=== PATIENT | male | born 1995 | race Caucasian/White ===

== ENCOUNTER 2023-03-27 16:06 | Outpatient (REF) | payer MEDICAID, SELFPAY ==
[2023-03-28 02:14] LABS: Alanine Aminotransferase 15 U/L (0-40); Albumin Level 4.5 g/dL (3.5-5.0); Alkaline Phosphatase 51 U/L (39-117); Anion Gap 9 (12-20); Aspartate Amino Transferase 20 U/L (5-37); Bilirubin Total 0.6 mg/dL (0.0-1.0); Blood Urea Nitrogen 13 mg/dL (9-16); Carbon Dioxide 26 mmol/L (22-29); Chloride 107 mmol/L (96-108); Cholesterol 175 mg/dL; Estimated Glomerular Filt Rate > 60; Glucose Random 94 mg/dL (60-115); HDL Cholesterol 29 mg/dL; LDL Cholesterol Calculated 81 mg/dl; Potassium 3.8 mmol/L (3.3-5.1); Sodium 138 mmol/L (135-145); Thyroid Stimulating Hormone 0.92 uIU/mL (0.32-4.0); Total Protein 7.4 g/dL (6.5-8.0); Triglycerides 328 mg/dL
[2023-03-28 05:08] LABS: ~HepC Num1 0.13 S/CO (0.00-0.79); ~Hepatitis C Antibody Nonreactive (Nonreactive)
[2023-03-28 05:44] LABS: Estimated Average Glucose 108 mg/dL; Hemoglobin A1c % 5.4 %
[2023-03-28 12:09] LABS: CT PCR NOT DETECTED (Not Detect.); NG PCR NOT DETECTED (Not Detect.)
[2023-03-29 08:17] LABS: Syphilis Screen Nonreactive (Nonreactive)
[2023-04-02 17:48] LABS: HIV RNA PCR Qn Copies Not Detected Copies/mL; HIV RNA PCR Qn Log Copies Not Detected Log cps/mL
== END 2023-03-27 16:07 | disposition home or self-care (01) ==
LOC: HO.HHCL 16:06
PROVIDERS: Visit Provider Nurse Practitioner Family
DX: Z00.00 Encounter for general adult medical examination without abnormal findings (principal); Z11.3 Encounter for screening for infections with a predominantly sexual mode of transmission; Z11.4 Encounter for screening for human immunodeficiency virus [HIV]; R73.03 Prediabetes
CPT/HCPCS: 0353U; 80053; 80061; 83036; 84443; 86780; 86803; 87536; 87900

== ENCOUNTER 2025-07-31 10:14 | Emergency (ER) | payer MEDICAID, SELFPAY ==
--- NOTE | ~2025-07-31 | XR_ITS ---
CLINICAL HISTORY: Twisted ankle with bilateral malleolus tenderness --- Additional Notes or Special Instructions: R O fracture 3 view left ankle Comparison: None provided Findings: No acute fractures or dislocations. No significant loss of joint space, osteophytes, or erosions. No ankle effusion. No radiopaque foreign body. IMPRESSION: 1. No acute findings. This document has been electronically signed by: Rhys Regalado MD on 07/31/2025 11:25:29
--- NOTE | ~2025-07-31 | XR_ITS ---
CLINICAL HISTORY: Fall, right hand tenderness 3 view right hand Comparison: None provided Findings: No fractures or dislocations. No significant loss of joint space or osteophytes. No erosions. No radiopaque foreign body. IMPRESSION: 1. No acute findings This document has been electronically signed by: Rhys Regalado MD on 07/31/2025 11:25:55
--- NOTE | ~2025-07-31 | XR_ITS ---
CLINICAL HISTORY: Fall, right wrist tenderness --- Additional Notes or Special Instructions: R O fracture 4 view right wrist Comparison: None provided Findings: No fractures or dislocations. No significant arthritic change or erosions. No radiopaque foreign body. IMPRESSION: 1. No acute findings This document has been electronically signed by: Rhys Regalado MD on 07/31/2025 11:25:06
--- NOTE | ~2025-07-31 | XR_ITS ---
CLINICAL HISTORY: Twisted foot, medial tenderness --- Additional Notes or Special Instructions: R O fracture 3 view left foot Comparison: None provided Findings: No fractures or dislocations. No significant arthritic change or erosions. No ankle effusion. No radiopaque foreign body. IMPRESSION: 1. No acute findings. This document has been electronically signed by: Rhys Regalado MD on 07/31/2025 11:23:10
--- OUTSIDE RECORDS SUMMARY | 2025-07-31 09:40 | XMS_ITS | Encounter Summary ---
Author Organization [employer] Address [address] [facility] 7 [place] [address] Care Team Providers Care Elevator Constructor Electric Name Role Phone Annamaria Genie PACK Primary Care Provider Ismael Eduardo RN Unavailable [phone] Merline Rodriguez Unavailable Encounter Details Date Type Department Care Team (Late st Contact Info) Description 07/31/2025 9:40 AM EST Office Visit [facility] [address] [place], [place] [id number] Lebron Mandel MD [address] [place] [address] Acute pain of right wrist (Primary Dx); Acute left ankle pain Social History Tobacco Use Types Packs/Day Years Used Date Smoking Tobacco: Former Cigarettes 0.5 5 0 02/07/2016 - 02/06/2021 Passive Smoke Exposure: Past Smokeless Tobacco: Never Comments:Quit smoking 2020 Alcohol Use Standard Drinks/Week Comments Yes 0 (1 standard drink = 0.6 oz pure alcohol) occasional - social functions dark liquor - Depression Answer Date Recorded Patient Health Questionnaire-9 Score 17 07/20/2025 Patient Health Questionnaire-9 Score 17 07/20/2025 Last PHQ-9: Questionnaire Data Not on file 1 09/19/2024 Housing Stability Answer Date Recorded What is your housing situation today? I do not have housing (Staying with others, in a hotel, in a fci, living outside on the street, on a beach, in a car, or in a park 07/21/[address] you li ve. Do you have problems with any of the following? None of the above 07/21/2025 Food Insecurity Answer Date Recorded Within the past 12 months, y ou worried that your food would run out before you got money to buy more: Sometimes True 2024 Within the past 12 months,th e food you bought just didn't last and you didn't have enough money to get more: Sometimes True 07/21/2025 Transportation Answer Date Recorded In the past 12 months, has l ack of transportation kept you from medical appts, meetings, work or from getting things needed for daily living? No 07/21/2025 Utilities Answer Date Recorded In the past 12 months, has t he electric, gas, oil or water company threatened to shut off services in your home? No 07/21/2024 Depression Answer Date Recorded Patient Health Questionnaire-2 Score 2 07/20/2025 Internet Access Answer Date Recorded Internet Access Q1 Yes 07/21/2024 Internet Access Q2 Not on file 07/21/2024 Sex and Gender Information Value Date Recorded Sex Assigned at Male 07/09/2022 10:15 AM EDT Legal Sex Male 10:15 AM EDT Gender Identity Male 02/06/2023 6:18 PM EDT Sexual Orientation Straight 02/06/2023 6: 18 PM EDT documented as of this encounter Last Filed Vital Signs Vital Sign Reading Time Taken Comments Blood Pressure 151/86 07/31/2025 9:42 AM EST Pulse 78 07/31/2025 9:42 AM EST Temperature 36.8 C (98.2 F) 07/31/2025 9:42 AM EST Respiratory Rate 19 07/31/2025 9:42 AM EST Oxygen Saturation 97% 07/31/2025 9:42 AM EST Inhaled Oxygen Concentration - - Weight 109 kg (240 lb) 07/31/2025 9:42 AM EST Height 160 cm (5' 3 ) 07/31/2025 9:42 AM EST Body Mass Index 42.51 07/31/2025 9:42 AM EST documented in this encounter Progress Notes * Lebron Mandel MD - 07/31/2025 9:40 AM EST Subjective History was provided by the patient. Dameon Rosenbaum is a 30 y.o. male who presents to Saturday [facility] for evaluation of right wrist and left ankle pain after a mechanical fall yesterday. Tripped over a doorframe saddle while carrying histoddler child. He landed on an outstretched right hand and inverted left foot. The child was not injured. Able to ambulate, but with pain in the area anterior to his left medial malleolus. Has underlying CTS (scheduled to see Orthopedics in 09/2025). 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 Pain is mostly in the right thumb thenar eminence area, along with the index and middle finger metacarpal areas. Increased tenderness with flexion of these digits. Has swelling and limited ROM with flexion/exte nsion of the wrist. Also with twitching of his fingers since the injury. Took Acetaminophen withoutmuch improvement. Objective Vitals: 07/31/25 0942 BP: (!) 151/86 BP Location: Left arm Patient Position: Sitting BP Cuff Size: Large adult Pulse: 78 Resp: 19 Temp: 98.2 ??F (36.8 ??C) TempSrc: Oral SpO2: 97% Weight: 240 lb (109 kg) Height: 5' 3 (1.6 m) Physical Exam Constitutional: General: He is not in acute distress. Appearance: Normal appearance. He is not ill-appearing, toxic-appearing or diaphoretic. HENT: Head: Normocephalic and atraumatic. Right Ear: External ear normal. Left Ear: External ear normal. Nose: Nose normal. Mouth/Throat: Pharynx: Oropharynx is clear. Eyes: Extraocular Movements: Extraocular movements intact. Conjunctiva/sclera: Conjunctivae normal. Pulmonary: Effort: Pulmonary effort is normal. Musculoskeletal: Cervical back: Neck supple. Comments: Right hand edema (including fingers); limited AROM with flexion/extension to about 45 degrees; visible twitching of index and middle fingers; limited flexion of thumb and index/middle fingers, with worsening tenderness; capillary refill is <2 sec, brisk Left ankle edema with tenderness in the area anterior to the medial malleolus (anterior deltoid); within normal plantar flexion and dorsiflexion ROM Skin: General: Skin is warm and dry. Neurological: General: No focal deficit present. Mental Status: He is alert and oriented to person, place, and time. Gait: Gait abnormal (antalgic gait). Psychiatric: Mood and Affect: Mood normal. Behavior: Behavior normal. Diagnoses and all orders for this visit: Acute pain of right wrist (Primary) Acute left ankle pain Patient presents to Saturday [facility] after a mechanical fall yesterday Landed on an outstretched right hand and inverted left foot Suspect left foot anterior deltoid ligament strain I am more concerned about his right hand due to significantly limited ROM and involuntary twitchings Recommended patient to be evaluated in an ER setting for X-ray and further management based on the imaging Future indications for UC/ER use reviewed Patient understands and agrees with the plan documented in this encounter Plan of Treatment Upcoming Encounters Date Type Department Care Team (Late st Contact Info) Description 08/10/2025 1:00 PM EST Nutrition [facility]TRITION [address] [place] [address] [place] [address] 09/13/2025 3:15 PM EST Office Visit [facility] [address] [place] [address] Genie Yin NP [address] [place] [address] documented as of this encounter Visit Diagnoses Diagnosis Acute pain of right wrist- Primary Acute left ankle pain documented in this encounter Additional Health Concerns Assessment Noted Time PHQ-9 Depression Total Score: 17 025 1:20 PM EST documented as of this encounter Care Teams Elevator Constructor Electric Relationship Specialty Start Date End Date Genie Yin NP [address] [place] [address] PCP - General Family Medicine 02/14/24 Ismael Eduardo RN [address] [place] [address] Registered Nurse Family Medicine 07/06/25 Merline Rodriguez 07/06/25 documented as of this encounter
[2025-07-31 10:23] VITALS: BP 155/88; PULSE 71; RESP 16; TEMP 36.4; O2SAT 98; BMI 42.5
--- NOTE | 2025-07-31 10:33 | ED_ITS ---
HPI - Extremity Problem General Chief complaint: Extremity Problem Stated complaint: Injury Time Seen by Provider: 07/31/25 10:17 Source: patient Mode of arrival: ambulatory Limitations: no limitations History of Present Illness ED Provider: Dr. Sebastián Razo HPI Narrative: 30-year-old male with a history of depression, anxiety, bipolar disorder, schizophrenia, ADHD, right hand and wrist carpal tunnel syndrome/tendonitis who presents emergency department for evaluation of trip and fall yesterday. Patient states that he fell on an outstretched right arm injuring his right hand and right wrist. He states he also twisted his left ankle. He is currently complaining of right hand, right wrist pain and left bilateral ankle pain and left foot pain. Patient did not take any medications for his pain. He states in his pain is 8/10 at this time. The patient states he is able to walk but he is having pain with walking. Also states he is able to move his hand and wrist but this makes the pain worse. Related Data Previous Rx's ?Medication ?Instructions ?Recorded acetaminophen 500 mg tablet 1,000 mg (2 x 500 mg) PO Q 6H PRN 07/31/25 (Tylenol Extra Strength) pain #20 tabs ibuprofen 400 mg tablet 400 mg PO TID PRN fever or p ain 07/31/25 #30 tabs Allergies Allergy/AdvReac Type Severity Reaction Status Date / Time amoxicillin (AMOXICILLIN) Allergy Unknown RASH Verified 07/31/25 10:24 [facility] Past Medical History [facility] Narrative: Social history: The patient states he is currently living in a homeless jail. 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 Social History Social History Advance Directives: No Advance Directives Information Provided: No Physical Exam Vital Signs: Vital Signs: Last Vital Signs Temp 97.6 F 07/31/25 10:23 Pulse 71 07/31/25 10:23 Resp 16 07/31/25 10:23 BP 155/88 H 07/31/25 10:23 Pulse Ox 98 07/31/25 10:23 O2 Del Method Room Air 07/31/25 10:23 BMI result Body Mass Index 42.5 Vital signs revealed an elevated blood pressure of 155/88 Exam: General: Awake, alert in no distress Extremities: Right: Patient has tenderness palpation of the bilateral malleolar areas with no significant ecchymosis or soft tissue swelling, also there is tenderness palpation over the medial aspect of the left foot. Patient is able to walk but expresses pain with walking. Left: The patient has tenderness palpation over his left wrist and left hand with no significant point tenderness, no significant ecchymosis or soft tissue swelling noted Neuro: Awake, alert, oriented, normal speech Psych: Pleasant, cooperative Medications Administered Discontinued Medications Generic Name Dose Route Start Last Admin Trade Name Maryann PRN Reason Stop Dose Admin Ibuprofen 400 mg 07/31/25 10:33 07/31/25 10:38 Ibuprofen 400 Mg Tablet PO 07/31/25 10:34 400 mg ONCE STA Administration Medical Decision Making Medical Decision Making MDM Narrative: 30-year-old male with a history of depression, anxiety, bipolar disorder, schizophrenia, ADHD, right hand and wrist carpal tunnel syndrome/tendonitis who presents emergency department for evaluation of trip and fall yesterday with injury to the left foot and ankle and right wrist and hand. Vital signs revealed an elevated blood pressure of 155/88. Patient does have tenderness palpation over his medial and lateral malleolus and medial aspect of his left foot. He also has tenderness with palpation of his right hand and right wrist. Differential diagnosis: ?Includes but is not limited to left ankle sprain/fracture, left foot sprain/fracture, right hand contusion/fracture, right wrist contusion/fractures Course: 10:41 I ordered x-rays of the patient's left foot ankle, right hand and wrist. Patient was given ibuprofen 400 mg orally for his pain. 12:22 Patient's x-rays revealed no acute fractures and I did discuss this with the patient. This time I do not think that the patient needs an ankle brace/walking boot given the minimal findings and the fact that he seems to be able to walk without much difficulty. Patient does have a wrist splint for his carpal tunnel syndrome and I told him to wear the right wrist splint for the next week. Patient was given prescriptions for ibuprofen 400 mg q.6 hours as needed for pain and Tylenol 500 mg pills, 2 pills every 6 hours as needed for pain. Patient was given a work note to return to work on 08/04/2025. Differential Diagnosis Differential Diagnoses: The differential diagnosis associated with the presentation includes (See above) Admission/Observation Consideration of admission/observation: Escalation of care including admission/observation considered (No) Independent Interpretation I performed an independent interpretation of an: Plain X-Ray Interpretation: My interpretation of the patient's left ankle and foot x-rays are as follows: No acute fractures seen by me. My interpretation of the patient's right wrist and hand x-ray is as follows: No acute fracture seen by me. Radiology Impression Discussion of test interpretation with radiology: I have reviewed the radiologist's reading. Radiologist Impression: 4 view right wrist Comparison: None provided Findings: No fractures or dislocations. No significant arthritic change or erosions. No radiopaque foreign body. IMPRESSION: 1. No acute findings This document has been electronically signed by: Rhys Regalado MD on 07/31/2025 11:25:06 3 view right hand Comparison: None provided Findings: No fractures or dislocations. No significant loss of joint space or osteophytes. No erosions. No radiopaque foreign body. IMPRESSION: 1. No acute findings This document has been electronically signed by: Rhys Regalado MD on 07/31/2025 11:25:55 3 view right hand Comparison: None provided Findings: No fractures or dislocations. No significant loss of joint space or osteophytes. No erosions. No radiopaque foreign body. IMPRESSION: 1. No acute findings This document has been electronically signed by: Rhys Regalado MD on 07/31/2025 11:25:55 3 view left foot Comparison: None provided Findings: No fractures or dislocations. No significant arthritic change or erosions. No ankle effusion. No radiopaque foreign body. IMPRESSION: 1. No acute findings. This document has been electronically signed by: Rhys Regalado MD on 07/31/2025 11:23:10 Discharge Plan Discharge Clinical Impression: Fall from slip, trip, or stumble Qualifiers: Encounter type: initial encounter Qualified Code(s): W01.0XXA - Fall on same level from slipping, tripping and stumbling without subsequent striking against object, initial encounter Left ankle sprain Qualifiers: Encounter type: initial encounter Sprain of left foot Qualifiers: Encounter type: initial encounter Qualified Code(s): S93.602A - Unspecified sprain of left foot, initial encounter Contusion of hand, right Qualifiers: Encounter type: initial encounter Qualified Code(s): S60.221A - Contusion of right hand, initial encounter Right wrist sprain Qualifiers: Encounter type: initial encounter Patient Disposition: Home, Self-Care Additional Instructions: The x-rays of your hand, wrist, ankle and foot did not reveal any broken bones which is reassuring. Your injuries are consistent with joint sprains and contusions. I do not think that you need an ankle brace at this time but I do want you to wear your right wrist brace for 1 week to help with your wrist sprain. Take ibuprofen 400 mg pills, 1 pills every 6 hours as needed for pain or fever. Take Tylenol (acetaminophen) 500 mg pills, 2 pills every 6 hours as needed for pain or fever. Continue taking your other medications as prescribed by your providers. Follow-up with your doctor in 2 days. Please return to the emergency department if your symptoms get worse or if you develop any symptoms that are concerning to you. Please see the return to work note. Prescriptions: New acetaminophen [Tylenol Extra Strength] 500 mg tablet 1,000 mg PO Q6H PRN (Reason: pain) Qty: 20 0RF ibuprofen 400 mg tablet 400 mg PO TID PRN (Reason: fever or pain) Qty: 30 0RF Stand Alone Forms: Work/School Release Print Language: Beninese
--- OUTSIDE RECORDS SUMMARY | 2025-07-31 10:40 | XMS_ITS ---
Author Organization [employer] Address [address] [place] [address] 7 [place] [address] Care Team Providers Care Restorative Rehab Aide Name Role Phone Genie Yin NP Primary Care Provider Ismael Eduardo RN Unavailable [phone] Merline Rodriguez Unavailable CM Complex Status:Enrolled (Active) Start date:07/06/2025 Enrollment date:07/20/2025 Enrollment reason:Referred by provider Overview Provider Referral- pt needs assistnace comleitng paperwork for SSI, disability realted to hand and mental health Case Team Name Relationship Phone Ismael Eduardo RN(Responsible Staff) Registered Nurse [phone] Continued Care and Services Coordination
--- OUTSIDE RECORDS SUMMARY | 2025-07-31 10:40 | XMS_ITS ---
Author Organization [employer] Address [address] [place] [address] [address] [place] [address] Care Team Providers Care Bone Char Kiln Tender Name Role Phone Genie Yin NP Primary Care Provider [phone] Ismael Eduardo RN Unavailable Merline Rodriguez Unavailable CHW Complex Status:Enrolled (Active) Start date:07/06/2025 Enrollment date:07/21/2025 Enrollment reason:Referred by provider Overview Provider Referral- pt needs assistnace comleitng paperwork for SSI, disability realted to hand and mental health Please outreach for enrollment. Case Team Name Relationship Phone Merline Rodriguez(Responsible Staff) [phone] Continued Care and Services Coordination
--- OUTSIDE RECORDS SUMMARY | 2025-07-31 10:40 | XMS_ITS | Encounter Summary ---
Author Organization [employer] Address [address] [facility] 7 [place] [address] Care Team Providers Care Freezer Laboratory Technician Name Role Phone Genie Yin NP Primary Care Provider [phone] Ismael Eduardo RN Unavailable [phone] Merline Rodriguez Unavailable Reason for Visit * Reason Comments Care Coordination SDOH Encounter Details Date Type Department Care Team (Latest Contact Info) Description 07/28/2025 Patient Outreach [facility] [address] [place], [place] [phone] Genie Yin NP [address] [place] [address] Care Coordination (SDOH) Social History Tobacco Use Types Packs/Day Years [...] with others, in a hotel, in a alf, living outside on the street, on a [...] PM EDT documented as of this encounter Progress Notes * Merline Rodriguez - 07/28/2025 10:00 AM EST CHW Merline Rodriguez met with the patient in the office today to follow up on SDOH needs. The patient???s name, date of , and address were confirmed. Patient reports doing well. CHW assisted the patient with scheduling an appointment to apply for SSI. The appointment is scheduled for 08/02/25 at 9:00 AM via phone. Patient agreed to the appointment and confirmed attendance. Required paperwork for the appointment was provided. Patient reported having an appointment with their partner on 07/29/25 to view an apartment. The patient is currently living in a alf and is seeking a 3- bedroom unit. CHW provided an additional housing application for another housing complex in the event the patient is not eligible for the apartment they plan to view. CHW also informed the patient that, if they secure the apartment, assistancecan be provided in locating a program to help with the down payment. CHW informed the patient that a follow-up will be completed within 10 days. Patient was agreeable and expressed gratitude for the support. No further questions or concerns were noted. CHW reinforced direct contact information: or for any additional needs. CHW also reviewed extended clinic hours on Mondays and Wednesdays, and availability of [facility] located in the [facility]. The after-hours [facility] line, , was provided; thisline offers nighttime triage services and the option to reach an on-call provider if needed. Patient verbalized understanding and successfully repeated the information. A follow-up call will be placed within 10 days. Patient agrees with the plan. documented in this encounter Plan of Treatment Upcoming Encounters Date Type Department Care Team (Late st Contact Info) Description 08/10/2025 1:00 PM EST Nutrition [facility] DIABETES/NUTRITION [address] [place] [address] Asha Israel, JAVIER [address] [place] [address] 09/13/2025 3:15 PM EST Office Visit [facility] [address] [place] [address] Genie Yin NP [address] [place] [address] documented as of this encounter Visit Diagnoses Not on filedocumented in this encounter Additional Health Concerns Assessment Noted Time PHQ-9 Depression Total Score: 17 025 1:20 PM EST documented as of this encounter Care Teams Freezer Laboratory Technician Relationship Specialty Start Date End Date Genie Yin NP [address] [place] [address] PCP - General Family Medicine 02/14/24 Ismael Eduardo RN [address] [place] [id number] Registered Nurse Family Medicine 07/06/25 Merline Rodriguez 07/06/25 documented as of this encounter
--- OUTSIDE RECORDS SUMMARY | 2025-07-31 10:40 | XMS_ITS | Clinical Summary ---
Author Organization [employer] Address [address] [place] [address] Care Team Providers Care Lace And Textiles Restorer Name Role Phone Annamaria Genie SIRENA Primary Care Provider [phone] Ismael Eduardo RN Unavailable [phone] Merline Rodriguez Unavailable Allergies Active Allergy Reactions Criticality Noted Date Comments Amoxicillin Rash Low 02/06/2023 Medications * This document contains information received from the source organization and may not represent a complete record from that organization. loratadine-pseud oephedrine ER (Claritin-D 24 Hour) 10-240 MG 24 hr tablet Take 1 tablet by mouth in the morning. Do not crush, chew, or split. 60 tablet 2 023 Active fluticasone (Flonase) 50 MCG/ACT nasal spray SPRAY 1-2 SPRAYS INTO EACH NOSTRIL IF NEEDED AT BEDTIME FOR RHINITIS. SHAKE GENTLY. BEFORE FIRST USE, PRIME PUMP. AFTER USE CLEAN TIP AND REPLACE CAP. 48 mL 024 Active guanFACINE (Tenex) 1 MG tablet TAKE 1 TABLET BY MOUTH AT BEDTIME 30 tablet 024 Active Additional Information Patient not taking.Reported on 07/20/2025 atomoxetine (Strattera) 40 MG capsuleIndicatio ns:Attention deficit hyperactivity disorder (ADHD), combined type Take 1 capsule (40 mg) by mouth with breakfast. Swallow capsule whole; do not open. If opened accidentally, do not touch eyes; wash hands immediately (product is an eye irritant). 30 capsule 2 Active Methylphenidate HCl (methylphenidate ER) 18 MG 24 hr tabletIndication s:Attention deficit hyperactivity disorder (ADHD), combined type Take 1 tablet (18 mg) by mouth Once per day. Do not crush, chew, or split. 30 tablet Active Diclofenac Sodium 1 % gel Apply 2 g topically 4 times daily. 350 g 2 2024 Active naproxen (Naprosyn) 500 MG tablet Take 1 tablet (500 mg) by mouth 2 times daily. 60 tablet 2024 Active naproxen (Naprosyn) 500 MG tablet Take 1 tablet (500 mg) by mouth 2 times daily. 60 tablet 2024 Discontinued(R eorder (will not trigger notification to Pharmacy)) Active Problems Problem Noted Date Diagnosed Date Class 3 severe obesity with body mass index (BMI) of 40.0 to 44.9 in adult 07/05/2025 Assessment & Plan (07/05/2025 8:13 PM EDT): Paranoid schizophrenia ([facility]) 07/05/2025 Assessment & Plan (07/05/2025 8:13 PM EDT): Orders: Referral to Care Management; Future Pain of right hand 04/01/2025 Assessment & Plan (04/01/2025 2:19 PM EDT): Referral to ortho for ongoing management of wrist pain De Quervain's tenosynovitis, right 01/26/2025 Assessment & Plan (01/26/2025 5:54 PM EDT): Right hand/thumb pain, likely De Quervain's tenosynovitis. Has tenderness and swelling over hypothenar eminence on exam. Hx of carpel tunnel syndrome. -encouraged to follow-up with ortho. -referred to occupational therapy. -prescribed ibuprofen 800 MG -recommended and encouraged rest, given thumb spice brace. -given work note and instructed pt to call if symptoms prolong and work requires an updated note. Acute carpal tunnel syndrome of right wrist 01/08 Assessment & Plan (07/05/2025 8:13 PM EDT): Orders: Referral to Orthopaedic Surgery; Future Assessment & Plan (01/26/2025 5:54 PM EDT): Right hand/thumb pain, likely De Quervain's tenosynovitis. Has tenderness and swelling over hypothenar eminence on exam. Hx of carpel tunnel syndrome. -encouraged to follow-up with ortho. -referred to occupational therapy. -prescribed ibuprofen 800 MG -recommended and encouraged rest, given thumb spice brace. -given work note and instructed pt to call if symptoms prolong and work requires an updated note. Dietary counseling 10/03/2024 Assessment & Plan (10/03/2024 5:02 PM EST): Encouraged minimizing processed foods and increasing whole foods particularly vegetables Exercise counseling 10/03/2024 Assessment & Plan (10/03/2024 5:03 PM EST): Encouraged daily movement, working up to 30 minutes daily Non-recurrent acute serous otitis media of right ear 05/25/2024 Assessment & Plan (05/25/2024 6:09 PM EDT): Reviewed likely viral and self reolution, however with concurrent acute symptoms post URI and erythema, will treat, pt aware to complete abx as prescribed, update if no improvement Attention deficit disorder 05/25/2024 Assessment & Plan (05/25/2024 6:10 PM EDT): Established with counselor and plans to establish with psychiatrist, follow up in 3-4 months sooner prn Hand paresthesia 02/14/2024 Assessment & Plan (10/03/2024 5:01 PM EST): Suspect carpal tunnel, referral to ortho Swelling 02/14/2024 Assessment & Plan (02/20/2024 3:36 PM EDT): Reassuring exam today, encouraged minimizing salty and processed foods, labs as ordered below History of prediabetes 03/27/2023 Attention deficit hyperactiv ity disorder (ADHD), combined type 02/06/2023 Assessment & Plan (10/03/2024 5:02 PM EST): Improved with stimulant, continue Encounters Date Type Department Care Team Description 07/31/2025 9:40 AM EST Office Visit [facility] [address] [place] [phone] Lebron Mandel MD Acute pain of right wrist (Primary Dx); Acute left ankle pain 07/31/2025 Travel 07/28/2025 Patient Outreach [address] [address] Genie Yin NP Care Coordination (SDOH) 07/21/2025 Patient Outreach [address] [address] Genie Yin NP Care Coordination (SDOH) 07/20/2025 Plan of Care Documentation [address] [phone] 07/20/2025 Plan of Care Documentation [address] [address] 07/20/2025 Patient Outreach [address] [address] Genie Yin NP Care Management (C3CM- initial assessment/ enrollment.) 07/06/2025 Patient Outreach [address] [address] Genie Yin NP Care Coordination (CM/CHW call back) 07/06/2025 Patient Outreach [address] [address] Genie Yin NP Care Coordination (CM/CHW outreach) 07/06/2025 Patient Outreach [address] [address] Genie Yin NP Care Coordination (CHW Chart Review) 07/06/2025 Patient Outreach [address] [address] Genie Yin NP Care Management (C3CM- chart review) 07/06/2025 Patient Outreach [facility] [address] [place] [phone] Genie Yin NP 07/05/2025 3:15 PM EDT Office Visit [facility] [address] [place] [phone] Genie Yin NP Acute carpal tunnel syndrome of right wrist (Primary Dx); Class 3 severe obesity with body mass index (BMI) of 40.0 to 44.9 in adult, unspecified obesity type, unspecified whether serious comorbidity present (HCC); Paranoid schizophrenia (CMS/HCC) (HCC) 07/05/2025 Travel 2025 Telephone [facility] [address] [place] [phone] Angélica Lainez MA chart prep 06/14/2025 Telephone [facility] [address] [place] [phone] Genie Yin NP 06/08/2025 5:00 PM EDT Office Visit [facility] [address] [place] [address] [phone] Hailey Castillo FNP Acute pain of right knee (Primary Dx); Dietary counseling 06/08/2025 Travel from Last 3 Months Immunizations Immunization Administration Dates Next Due DTP 1996,1996 DTaP 02/23/2002,05/02/2000,07/24/1999 HPV, Quadrivalent 01/10/2015,03/25/2013 Hep A, ped/adol, 2 dose 03/25/2013,07/18/2010 Hep B, Adolescent or Pediatric 05/02/2000,1995 Hib (HbOC) 05/02/2000, 9,1996,08/27 IPV 08/19/2000, 9,1996,08/27 Influenza injectable quadriv alent preservative free 06/25/2017 Influenza, IIV3, injectable 07/18/2010, 9,07/09/2008 MMR 08/19/2000,05/02/2000 Meningococcal MCV4P ACYW-135 01/10/2015 Meningococcal MPSV4 06/08/2008 Pneumococcal Conjugate PCV 7 05/02/2000 Tdap 06/08/2008 Varicella 06/08/2008,11/07/1999 Family History Medical History Relation Name Comments ADD / ADHD Brother Autism Brother Diabetes type II Mother Hypertension Mother Autism Son Relation Name Status Comments Brother Mother Son Social History Tobacco Use Types Packs/Day Years Used Date Smoking Tobacco: Former Cigarettes 0.5 5 0 02/07/2016 - 02/06/2021 Passive Smoke Exposure: Past Smokeless Tobacco: Never Tobacco Cessation:Counseling Given: Not Answered Comments:Quit smoking 2020 Alcohol Use Standard Drinks/Week [...] with others, in a hotel, in a long-term, living outside on the street, on a [...] Orientation Straight 02/06/2023 6: 18 PM EDT Last Filed Vital Signs Vital Sign Reading [...] Mass Index 42.51 07/31/2025 9:42 AM EST Plan of Treatment Upcoming Encounters Date Type Department Care Team (Late st Contact Info) Description 08/10/2025 1:00 PM EST Nutrition [facility] [address] [place] [address] Asha Israel, JAVIER [address] [place] [address] 09/13/2025 3:15 PM EST Office Visit [facility] [address] [place] [address] Genie Yin, SIRENA [address] [place] [address] Health Maintenance Due Date Last Done Comments HIV Screening 1996 Hepatitis B Vaccines (3 of 3 - 3-dose series) 06/27/2000 05/02/2000, 1996 Family Planning (PISQ) 2011 HPV Vaccines (3 - Male 3-dose series) 04/04/2015 01/10/2015, 03/25/2013 DTaP/Tdap/Td Vaccines (7 - Td or Tdap) 06/08/2018 06/08/2008, 02/23/2002, 05/02/2000, Additional history exists COVID-19 Vaccine ( season) 2025 05/22/2021, 04/24/2021 Influenza Vaccine (#1) 2025 7, 07/18/2010, 06/09/2009, Additional history exists Alcohol/Substance Use Screening 08/14/2025 08/14/2024 Depression Monitoring 01/17/2026 07/20/2025, 025 Disability Screening 03/08/2026 03/08/2025 Tobacco Screening 07/05/2026 07/05/2025 SDOH Screening 07/21/2026 07/21/2025 Lipid Panel 03/27/2028 03/27/2023 Zoster Vaccines (1 of 2) 2046 RSV Patients and Patients Aged 60 years or older (1 - 1-dose 75+ series) 2071 HIB Vaccines Completed 05/02/2000, 07/10, 1996, Additional history exists Pneumococcal Vaccine: Pediatrics (0 to 5 Years) and At-Risk Patients (6 to 49) Years Aged Out 05/02/2000 No longer eligible based on patient's age to complete this topic IPV Vaccines Completed 08/19/2000, 07/10, 1996, Additional history exists Hepatitis A Vaccines Completed 03/25/2013, 07/18/20 10 Meningococcal Vaccine Completed 01/10/2015, 008 Hepatitis C Screening Completed 03/27/2023 Meningococcal B Vaccine Aged Out No l onger eligible based on patient's age to complete this topic RSV under 20 months Aged Out No longe r eligible based on patient's age to complete this topic Rotavirus Vaccines Aged Out No longer eligible based on patient's age to complete this topic Procedures Procedure Name Priority Date/Time Associated Diagnosis Comments HEPATITIS C ANTIBODY REFLEX Routine 03/27/2023 4:14 PM EDT LIPID PANEL, STANDARD Routine 03/27/2023 4:14 PM EDT Routine general medical examination at a health care facility from Last 3 Months or Most Recently Relevant to Health Maintenance Results * Hepatitis C Antibody Reflex (03/27/2023 4:14 PM EDT) Hepatitis C Antibody Nonreactive Nonreactive [facility] Comment:Antibodies to HCV no t detected; does not exclude early acuteHCV infection. 03/27/2023 4:14 PM EDT 03/27/2023 5:51 PM EDT [facility] BLOOD ORDERABLES Final Resu lt Performing Organization Address City/[facility]/ZIP Co de Phone Number [facility] [address] [place] [address] [phone] * Lipid Panel, Standard (03/27/2023 4:14 PM EDT) Triglycerides 328 mg/dL [facility] Comment:Desirable Triglyceri de: less than 150 mg/dLBorderline High Triglyceride 150-199 mg/dLHigh Triglyceride: 200-499 mg/dLVery High Triglyceride: greater than or equal to 5OO mg/dL Cholesterol 175 mg/dL [facility] Comment:Desirable Cholestero l: less than 200 mg/dLBorderline High Cholesterol: 200-239 mg/dLHigh Cholesterol: greater than 239 mg/dL LDL Cholesterol Calculated 81 mg/dl [facility] Comment:Desirable LDL: less than 100 mg/dLNear Optimal/Above Optimal LDL: 110- 129 mg/dLBorderline High LDL: 130-159 mg/dLHigh LDL: 160-189 mg/dLVery High LDL: greater than or equal to 190 mg/dL HDL Cholesterol 29 mg/dL [facility] Comment:Desirable HDL: great er than 40 mg/dL Note: This HDL assay may give artificially low results in patients with liver disease. Blood Venous blood specimen / Unknown 03/27/2023 4:14 PM EDT 03/27/2023 5:51 PM EDT [facility] BLOOD ORDERABLES Final Resu lt Performing Organization Address City/[facility]/ZIP Co de Phone Number [facility] [address] [place] [address] [phone] from Last 3 Months or Most Recently Relevant to Health Maintenance Insurance [facility] C3 Care Teams Lace And Textiles Restorer Relationship Specialty Start Date End Date Genie Yin NP [address] [place] [address] PCP - General Family Medicine 02/14/24 Ismael Eduardo, JOSEFINA [address] [place] [phone] Registered Nurse Family Medicine 07/06/25 Merline Rodriguez 07/06/25
--- OUTSIDE RECORDS SUMMARY | 2025-07-31 10:40 | XMS_ITS | Encounter Summary ---
Author Organization [employer] Address [address] [facility] [address] [place] [address] Care Team Providers Care Liturgical Music Director Name Role Phone Genie Yin NP Primary Care Provider [phone] Ismael Eduardo RN Unavailable [phone] Merline Rodriguez Unavailable Encounter Details Date Type Department Care Team (Latest Contact Info) Description 07/31/2025 Travel Social History Tobacco Use Types Packs/Day Years [...] with others, in a hotel, in a senior care, living outside on the street, on a [...] got money to buy more: Sometimes True 11/12/ 2025 Within the past 12 months,th e food [...] PM EDT documented as of this encounter Plan of Treatment Upcoming Encounters Date Type Department Care Team (Late st Contact Info) Description 08/10/2025 1:00 PM EST Nutrition [facility] DI[facility]ET[facility]/NUTRITION [address] [place] [phone] [place] [address] 09/13/2025 3:15 PM EST Office Visit [facility] [address] [place] [phone] Genie Yin NP [address] [place] [address] documented as of this encounter Visit Diagnoses Not on filedocumented in this encounter Additional Health Concerns Assessment Noted Time PHQ-9 Depression Total Score: 17 025 1:20 PM EST documented as of this encounter Care Teams Liturgical Music Director Relationship Specialty Start Date End Date Genie Yin NP [address] [place] [address] PCP - General Family Medicine 02/14/24 Ismael Eduardo RN [address] [place] [phone] Registered Nurse Family Medicine 07/06/25 Merline Rodriguez 07/06/25 documented as of this encounter
[2025-07-31 13:36] VITALS: BP 155/88; PULSE 71; RESP 16; TEMP 36.4; O2SAT 98
== END 2025-07-31 13:36 | disposition home or self-care (01) ==
PROVIDERS: Emergency Provider Emergency Medicine Emergency Medical Services; PCP Nurse Practitioner Family
DX: S60.221A Contusion of right hand, initial encounter (principal); S93.602A Unspecified sprain of left foot, initial encounter; W01.0XXA Fall on same level from slipping, tripping and stumbling without subsequent striking against object, initial encounter; Y93.89 Activity, other specified; Y92.89 Other specified places as the place of occurrence of the external cause; Y99.8 Other external cause status
CPT/HCPCS: 73110; 73130; 73610; 73630; 99283

== ENCOUNTER → 2025-07-31 10:33 | Outpatient (BNV) | payer MEDICAID, SELFPAY | PROVIDERS: Emergency Provider Emergency Medicine Emergency Medical Services; PCP Nurse Practitioner Family; Visit Provider Radiology Vascular & Interventional Radiology | DX: M79.641 Pain in right hand (principal); R21 Rash and other nonspecific skin eruption; M25.531 Pain in right wrist; M25.572 Pain in left ankle and joints of left foot; M25.571 Pain in right ankle and joints of right foot; M79.672 Pain in left foot; Z04.3 Encounter for examination and observation following other accident; X50.9XXA Other and unspecified overexertion or strenuous movements or postures, initial encounter | CPT/HCPCS: 73110; 73130; 73610; 73630 ==